=== PATIENT | female | born 1950 | race Caucasian/White ===

== ENCOUNTER 2020-10-05 15:22 | Inpatient (IN) ==
[2020-10-05 16:16] LABS: Basophils % 0.3 % (0.0-0.8); Eosinophils % 0.6 % (0.00-10.9); Hematocrit 35.3 VOL% (35.7-47.0); Hemoglobin 11.7 GM/DL (12.0-16.0); Immature Granulocytes % 1.1 %; Immature Granulocytes Absolute 0.04 #; Lymphocytes # 0.6 10*3/uL (1.4-4.0); Lymphocytes % 15.5 % (21.3-54.2); Mean Corpuscular HGB Conc 33.1 GM/DL (32-36); Mean Corpuscular Volume 91.7 FL (87-102); Mean Platelet Volume 9.8 FL (9.6-12.0); Monocytes % 7.8 % (1.7-12.7); Neutrophils % 74.7 % (38.7-73.9); Platelet Count 173 T/CUMM (130-400); Red Blood Count 3.85 MC/CUMM (3.8-5.5); Red Cell Distribution Width 15.2 % (9.3-17.3); White Blood Count 3.6 T/CUMM (4-12)
[2020-10-05] MEDS ORDERED: SODIUM CHLORIDE 0.9% 1,000 ML IV STA (16:16)
[2020-10-05 16:30] LABS: Bilirubin,Total 0.9 MG/DL (0.2-1.0); Calcium 7.5 MG/DL (8.5-10.1); Ferritin 83.3 ng/ml (8-252); Osmolality,Calculated 283.3 MOS/KG (273-304); Total Protein 6.2 G/DL (6.4-8.3)
[2020-10-05 16:43] LABS: Troponin I 0.033 NG/ML (0.00-0.045)
[2020-10-05] MEDS ORDERED: ONDANSETRON 4 MG/2 ML VIAL IV PRN (18:59)
[2020-10-05 20:32] LABS: Hepatitis B Core IgM Quant 0.06 Index; Hepatitis B Surface Ag Quant < 0.10 Index; Hepatitis B Surface Ag Result Negative (Negative); Hepatitis C Virus Ab Quant 0.08 Index; Hepatitis C Virus Ab Result Negative (Negative)
[2020-10-05] MEDS ORDERED: VANCOMYCIN INJ 2,000 MG in SODIUM CHLORIDE 0.9% 500 ML IV SCH (21:00)
[2020-10-05] MEDS ORDERED: ENOXAPARIN 40 MG/0.4 ML SYRINGE SUBCUT SCH (21:00)
[2020-10-05 21:49] LABS: ABG Base Excess 2.7 MMOL/L (-2.5-2.5); ABG HCO3 29.4 MMOL/L (20-26); ABG Oxygen Saturation 85.9 % (95-100); ABG PCO2 54.5 MM HG (35-48); ABG PO2 57.9 MM HG (80-95); ABG TCO2 31.1 MMOL/L (23-27); Allen Test Positive; Pt O2 Delivery Device Other
[2020-10-05] MEDS ORDERED: REMDESIVIR 200 MG in SODIUM CHLORIDE 0.9% 210 ML IV ONE (22:00)
[2020-10-05] MEDS ORDERED: INFLUENZA VIRUS VACCINE 0.5 ML SYRINGE IM ONE (22:11)
[2020-10-05] MEDS ORDERED: ETOMIDATE 20 MG/10 ML VIAL IV ONE ×2 (23:39→23:44)
[2020-10-05] MEDS ORDERED: ROCURONIUM 100 MG/10 ML VIAL IV ONE ×2 (23:40→23:44)
[2020-10-05] MEDS ORDERED: FUROSEMIDE 40 MG/4 ML VIAL ONE (23:42)
[2020-10-05] MEDS ORDERED: FUROSEMIDE 40 MG/4 ML VIAL IV ONE (23:42)
[2020-10-06 00:15] LABS: ABG Base Excess 2.6 MMOL/L (-2.5-2.5); ABG HCO3 30.2 MMOL/L (20-26); ABG Oxygen Saturation 73.5 % (95-100); ABG PCO2 59.9 MM HG (35-48); ABG PH 7.321 (7.35-7.45); ABG PO2 45.7 MM HG (80-95); ABG TCO2 32.1 MMOL/L (23-27)
[2020-10-06] MEDS: SODIUM CHLOR 0.9% KCL 40 MEQ 40 MEQ/1,000 ML BAG IV SCH ×3 (01:49→13:26)
[2020-10-06] MEDS: ALBUTEROL INHALER 18 GM INH SCH ×4 (02:10→18:02)
[2020-10-06 03:30] LABS: ABG Base Excess 4.8 MMOL/L (-2.5-2.5); ABG HCO3 28.6 MMOL/L (20-26); ABG PCO2 35.7 MM HG (35-48); ABG PO2 63.4 MM HG (80-95); ABG TCO2 24.3 MMOL/L (23-27); Allen Test Positive; Pt O2 Delivery Device Ventilator
[2020-10-06 06:12] LABS: Basophils % 0.2 % (0.0-0.8); Hematocrit 35.3 VOL% (35.7-47.0); Hemoglobin 11.9 GM/DL (12.0-16.0); Immature Granulocytes % 0.9 %; Immature Granulocytes Absolute 0.05 #; Lymphocytes # 0.7 10*3/uL (1.4-4.0); Lymphocytes % 11.7 % (21.3-54.2); Mean Corpuscular HGB Conc 33.7 GM/DL (32-36); Mean Corpuscular Volume 89.4 FL (87-102); Mean Platelet Volume 9.8 FL (9.6-12.0); Monocytes % 6.1 % (1.7-12.7); Neutrophils % 81.1 % (38.7-73.9); Platelet Count 190 T/CUMM (130-400); Red Blood Count 3.95 MC/CUMM (3.8-5.5); Red Cell Distribution Width 15.2 % (9.3-17.3); White Blood Count 5.9 T/CUMM (4-12)
[2020-10-06 06:35] LABS: Albumin 2.6 G/DL (3.4-5.0); Bilirubin,Total 1.2 MG/DL (0.2-1.0); Calcium 7.3 MG/DL (8.5-10.1); Osmolality,Calculated 282.1 MOS/KG (273-304); Total Protein 6.2 G/DL (6.4-8.3)
[2020-10-06 06:38] LABS: Albumin 2.7 G/DL (3.4-5.0); Bilirubin,Direct 0.46 MG/DL (0.0-0.20); Bilirubin,Indirect 0.6 MG/DL (0.0-1.0); Bilirubin,Total 1.1 MG/DL (0.2-1.0); Total Protein 6.2 G/DL (6.4-8.3)
[2020-10-06] MEDS ORDERED: PANTOPRAZOLE 40 MG VIAL IV SCH (09:00)
[2020-10-06] MEDS: DEXAMETHASONE 10 MG/1 ML VIAL IV SCH (09:14)
[2020-10-06] MEDS: ACETAMINOPHEN 325 MG TABLET PO PRN (09:15)
[2020-10-06] MEDS: POTASSIUM CHLORIDE 20 MEQ/15 ML UDCUP PER TUBE PRN ×2 (12:40→16:04)
[2020-10-06] MEDS: LOSARTAN 25 MG TABLET PO SCH (13:16)
[2020-10-06] MEDS: ENOXAPARIN 80 MG/0.8 ML SYRINGE SUBCUT SCH (13:16)
[2020-10-06] MEDS: PREGABALIN 75 MG CAPSULE PO SCH ×2 (13:16→20:35)
[2020-10-06] MEDS: FUROSEMIDE 20 MG TABLET PO SCH (13:16)
[2020-10-06] MEDS: AZITHROMYCIN INJ 500 MG in SODIUM CHLORIDE 0.9% 250 ML IV SCH (13:17)
[2020-10-06] MEDS ORDERED: SODIUM CHLORIDE 0.9% 1,000 ML IV PRN (14:22)
[2020-10-06] MEDS: REMDESIVIR 100 MG in SODIUM CHLORIDE 0.9% 100 ML IV SCH (16:02)
[2020-10-06] MEDS: POTASSIUM CHLORIDE 10 MEQ TABLET PO SCH (20:35)
[2020-10-06] MEDS: FAMOTIDINE 20 MG TABLET PER TUBE SCH (20:35)
[2020-10-06] MEDS: rOPINIRole 1 MG TABLET PO SCH (20:35)
[2020-10-07] MEDS: SODIUM CHLOR 0.9% KCL 40 MEQ 40 MEQ/1,000 ML BAG IV SCH ×2 (00:33→02:42)
[2020-10-07] MEDS: ENOXAPARIN 80 MG/0.8 ML SYRINGE SUBCUT SCH ×2 (00:34→14:33)
[2020-10-07] MEDS: ALBUTEROL INHALER 18 GM INH SCH ×4 (01:00→19:45)
[2020-10-07 04:48] LABS: Basophils % 0.2 % (0.0-0.8); Hematocrit 34.9 VOL% (35.7-47.0); Hemoglobin 11.4 GM/DL (12.0-16.0); Immature Granulocytes % 0.5 %; Immature Granulocytes Absolute 0.03 #; Lymphocytes # 0.6 10*3/uL (1.4-4.0); Lymphocytes % 11.1 % (21.3-54.2); Mean Corpuscular HGB Conc 32.7 GM/DL (32-36); Mean Corpuscular Volume 93.3 FL (87-102); Mean Platelet Volume 10.5 FL (9.6-12.0); Monocytes % 6.4 % (1.7-12.7); Neutrophils % 81.8 % (38.7-73.9); Platelet Count 179 T/CUMM (130-400); Red Blood Count 3.74 MC/CUMM (3.8-5.5); Red Cell Distribution Width 15.2 % (9.3-17.3); White Blood Count 5.5 T/CUMM (4-12)
[2020-10-07 05:00] LABS: ABG Base Excess 4.1 MMOL/L (-2.5-2.5); ABG HCO3 28.1 MMOL/L (20-26); ABG Oxygen Saturation 97.2 % (95-100); ABG PCO2 37.5 MM HG (35-48); ABG PH 7.477 (7.35-7.45); ABG PO2 85.7 MM HG (80-95); ABG TCO2 24.6 MMOL/L (23-27); Allen Test Positive; Pt O2 Delivery Device Ventilator
[2020-10-07 05:30] LABS: Albumin 2.3 G/DL (3.4-5.0); Bilirubin,Total 1.5 MG/DL (0.2-1.0); Calcium 7.4 MG/DL (8.5-10.1); Osmolality,Calculated 290.7 MOS/KG (273-304)
[2020-10-07] MEDS: LEVOTHYROXINE 50 MCG TABLET PO SCH (06:04)
[2020-10-07] MEDS ORDERED: POTASSIUM PHOSPHATE 30 MMOL in SODIUM CHLORIDE 0.9% 250 ML IV ONE (08:00)
[2020-10-07] MEDS: FUROSEMIDE 20 MG TABLET PO SCH (08:27)
[2020-10-07] MEDS: CHOLECALCIFEROL 1,000 UNIT TABLET PO SCH (08:27)
[2020-10-07] MEDS: ZINC GLUCONATE 50 MG TABLET PO SCH (08:27)
[2020-10-07] MEDS: PREGABALIN 75 MG CAPSULE PO SCH ×2 (08:27→20:36)
[2020-10-07] MEDS: DEXAMETHASONE 10 MG/1 ML VIAL IV SCH (08:32)
[2020-10-07] MEDS: FAMOTIDINE 20 MG TABLET PER TUBE SCH ×2 (08:32→20:36)
[2020-10-07] MEDS: LOSARTAN 25 MG TABLET PO SCH (08:32)
[2020-10-07] MEDS: ASCORBIC ACID 500 MG TABLET PO SCH (08:33)
[2020-10-07] MEDS: SODIUM CHLORIDE 0.9% 1,000 ML IV SCH (11:00)
[2020-10-07] MEDS ORDERED: DEXTROSE 50% 25 GM/50 ML VIAL IV PRN (12:13)
[2020-10-07] MEDS ORDERED: GLUCAGON 1 MG VIAL IM PRN (12:13)
[2020-10-07] MEDS: REMDESIVIR 100 MG in SODIUM CHLORIDE 0.9% 100 ML IV SCH ×2 (16:42→17:20)
[2020-10-07] MEDS: OLMESARTAN 20 MG TABLET PO SCH (17:42)
[2020-10-07] MEDS: INSULIN REGULAR 100 UNIT/ML SUBCUT SCH (17:42)
[2020-10-07] MEDS: hydrALAZINE 20 MG/1 ML VIAL IV PRN (18:30)
[2020-10-07] MEDS: rOPINIRole 1 MG TABLET PO SCH (20:36)
[2020-10-07] MEDS: POTASSIUM CHLORIDE 10 MEQ TABLET PO SCH (20:37)
[2020-10-07] MEDS: AZITHROMYCIN INJ 500 MG in SODIUM CHLORIDE 0.9% 250 ML IV SCH (20:38)
[2020-10-07] MEDS ORDERED: MORPHINE 10 MG/1 ML VIAL IV PRN ×2 (22:00→22:36)
[2020-10-07] MEDS ORDERED: MORPHINE 4 MG/1 ML VIAL ONE (22:16)
[2020-10-07] MEDS: fentaNYL INJ 1,250 MCG in SODIUM CHLORIDE 0.9% 225 ML IV PRN (23:10)
[2020-10-08] MEDS: INSULIN REGULAR 100 UNIT/ML SUBCUT SCH ×4 (00:40→17:44)
[2020-10-08] MEDS: ALBUTEROL INHALER 18 GM INH SCH ×4 (01:25→18:11)
[2020-10-08] MEDS: ENOXAPARIN 80 MG/0.8 ML SYRINGE SUBCUT SCH ×2 (01:25→13:51)
[2020-10-08] MEDS: SODIUM CHLORIDE 0.9% 1,000 ML IV SCH ×3 (02:25→06:31)
[2020-10-08 05:00] LABS: ABG Oxygen Saturation 97.8 % (95-100); ABG PCO2 27.4 MM HG (35-48); ABG PH 7.558 (7.35-7.45); ABG PO2 84.9 MM HG (80-95); ABG TCO2 21.8 MMOL/L (23-27); Allen Test Positive; Pt O2 Delivery Device Ventilator
[2020-10-08] MEDS: LEVOTHYROXINE 50 MCG TABLET PO SCH (06:26)
[2020-10-08 07:17] LABS: Hematocrit 31.6 VOL% (35.7-47.0); Hemoglobin 10.4 GM/DL (12.0-16.0); Immature Granulocytes Absolute 0.07 #; Lymphocytes # 0.8 10*3/uL (1.4-4.0); Lymphocytes % 10.9 % (21.3-54.2); Mean Corpuscular HGB Conc 32.9 GM/DL (32-36); Mean Corpuscular Volume 90.8 FL (87-102); Mean Platelet Volume 10.5 FL (9.6-12.0); NRBC # 0.05 10*3/uL; Neutrophils % 81.1 % (38.7-73.9); Platelet Count 198 T/CUMM (130-400); Red Blood Count 3.48 MC/CUMM (3.8-5.5); Red Cell Distribution Width 15.2 % (9.3-17.3); White Blood Count 7.3 T/CUMM (4-12)
[2020-10-08 07:46] LABS: Ferritin 74.2 ng/ml (8-252)
[2020-10-08] MEDS: CHOLECALCIFEROL 1,000 UNIT TABLET PO SCH (09:26)
[2020-10-08] MEDS: OLMESARTAN 20 MG TABLET PO SCH (09:26)
[2020-10-08] MEDS: POTASSIUM CHLORIDE 10 MEQ TABLET PO SCH ×2 (09:27→20:26)
[2020-10-08] MEDS: ASCORBIC ACID 500 MG TABLET PO SCH (09:27)
[2020-10-08] MEDS: PREGABALIN 75 MG CAPSULE PO SCH ×2 (09:28→20:27)
[2020-10-08] MEDS: FAMOTIDINE 20 MG TABLET PER TUBE SCH ×2 (09:28→20:26)
[2020-10-08] MEDS: FUROSEMIDE 20 MG TABLET PO SCH (09:28)
[2020-10-08] MEDS: ZINC GLUCONATE 50 MG TABLET PO SCH (09:28)
[2020-10-08] MEDS: DEXAMETHASONE 10 MG/1 ML VIAL IV SCH (09:28)
[2020-10-08] MEDS: REMDESIVIR 100 MG in SODIUM CHLORIDE 0.9% 100 ML IV SCH (09:52)
[2020-10-08] MEDS ORDERED: POTASSIUM PHOSPHATE 30 MMOL in SODIUM CHLORIDE 0.9% 250 ML IV ONE (10:00)
[2020-10-08] MEDS: FUROSEMIDE 40 MG TABLET PO SCH ×2 (11:13→20:26)
[2020-10-08] MEDS: fentaNYL INJ 1,250 MCG in SODIUM CHLORIDE 0.9% 225 ML IV PRN ×2 (14:39→23:17)
[2020-10-08] MEDS: AZITHROMYCIN INJ 500 MG in SODIUM CHLORIDE 0.9% 250 ML IV SCH (20:26)
[2020-10-08] MEDS: rOPINIRole 1 MG TABLET PO SCH (20:26)
[2020-10-09] MEDS: INSULIN REGULAR 100 UNIT/ML SUBCUT SCH ×4 (00:11→18:33)
[2020-10-09] MEDS: ALBUTEROL INHALER 18 GM INH SCH ×4 (00:12→21:56)
[2020-10-09] MEDS: ENOXAPARIN 80 MG/0.8 ML SYRINGE SUBCUT SCH ×2 (01:36→14:52)
[2020-10-09 03:54] LABS: ABG Base Excess 1.2 MMOL/L (-2.5-2.5); ABG HCO3 25.5 MMOL/L (20-26); ABG Oxygen Saturation 95.3 % (95-100); ABG PCO2 29.5 MM HG (35-48); ABG PH 7.509 (7.35-7.45); ABG PO2 73.3 MM HG (80-95); Allen Test Positive; Pt O2 Delivery Device Ventilator
[2020-10-09 03:55] LABS: Basophils % 0.1 % (0.0-0.8); Hematocrit 34.6 VOL% (35.7-47.0); Immature Granulocytes % 1.4 %; Immature Granulocytes Absolute 0.11 #; Lymphocytes # 0.8 10*3/uL (1.4-4.0); Lymphocytes % 10.4 % (21.3-54.2); Mean Corpuscular HGB Conc 31.8 GM/DL (32-36); Mean Platelet Volume 11.1 FL (9.6-12.0); Monocytes % 7.4 % (1.7-12.7); NRBC # 0.12 10*3/uL; Neutrophils % 80.7 % (38.7-73.9); Platelet Count 240 T/CUMM (130-400); Red Blood Count 3.72 MC/CUMM (3.8-5.5); Red Cell Distribution Width 15.2 % (9.3-17.3); White Blood Count 7.8 T/CUMM (4-12)
[2020-10-09 04:25] LABS: Calcium 7.3 MG/DL (8.5-10.1); Osmolality,Calculated 293.8 MOS/KG (273-304)
[2020-10-09] MEDS: LEVOTHYROXINE 50 MCG TABLET PO SCH (06:01)
[2020-10-09] MEDS: ZINC GLUCONATE 50 MG TABLET PO SCH (08:26)
[2020-10-09] MEDS: POTASSIUM CHLORIDE 10 MEQ TABLET PO SCH ×2 (08:26→20:36)
[2020-10-09] MEDS: OLMESARTAN 20 MG TABLET PO SCH (08:26)
[2020-10-09] MEDS: FUROSEMIDE 40 MG TABLET PO SCH ×2 (08:26→20:37)
[2020-10-09] MEDS: CHOLECALCIFEROL 1,000 UNIT TABLET PO SCH (08:26)
[2020-10-09] MEDS: PREGABALIN 75 MG CAPSULE PO SCH ×2 (08:27→20:37)
[2020-10-09] MEDS: ASCORBIC ACID 500 MG TABLET PO SCH (08:27)
[2020-10-09] MEDS: FAMOTIDINE 20 MG TABLET PER TUBE SCH ×2 (08:27→20:37)
[2020-10-09] MEDS: DEXAMETHASONE 10 MG/1 ML VIAL IV SCH (08:27)
[2020-10-09] MEDS: REMDESIVIR 100 MG in SODIUM CHLORIDE 0.9% 100 ML IV SCH (08:59)
[2020-10-09] MEDS: rOPINIRole 1 MG TABLET PO SCH (20:37)
[2020-10-09] MEDS: AZITHROMYCIN INJ 500 MG in SODIUM CHLORIDE 0.9% 250 ML IV SCH (20:39)
[2020-10-10] MEDS: INSULIN REGULAR 100 UNIT/ML SUBCUT SCH ×4 (00:33→17:42)
[2020-10-10] MEDS: ALBUTEROL INHALER 18 GM INH SCH ×4 (00:33→21:49)
[2020-10-10 03:36] LABS: ABG Base Excess 2.8 MMOL/L (-2.5-2.5); ABG HCO3 26.9 MMOL/L (20-26); ABG Oxygen Saturation 98.5 % (95-100); ABG PCO2 41.9 MM HG (35-48); ABG PH 7.425 (7.35-7.45); Allen Test Positive; Pt O2 Delivery Device Ventilator
[2020-10-10 04:38] LABS: Basophils % 0.2 % (0.0-0.8); Hematocrit 38.8 VOL% (35.7-47.0); Hemoglobin 12.6 GM/DL (12.0-16.0); Immature Granulocytes Absolute 0.38 #; Lymphocytes # 0.7 10*3/uL (1.4-4.0); Lymphocytes % 5.7 % (21.3-54.2); Mean Corpuscular HGB Conc 32.5 GM/DL (32-36); Mean Corpuscular Volume 90.9 FL (87-102); Mean Platelet Volume 11.7 FL (9.6-12.0); Monocytes % 7.5 % (1.7-12.7); NRBC # 0.13 10*3/uL; Neutrophils % 83.6 % (38.7-73.9); Platelet Count 234 T/CUMM (130-400); Red Blood Count 4.27 MC/CUMM (3.8-5.5); Red Cell Distribution Width 14.6 % (9.3-17.3)
[2020-10-10] MEDS: hydrALAZINE 20 MG/1 ML VIAL IV PRN (04:54)
[2020-10-10] MEDS: MORPHINE 4 MG/1 ML VIAL IV PRN (04:54)
[2020-10-10 04:55] LABS: Calcium 7.9 MG/DL (8.5-10.1)
[2020-10-10 04:56] LABS: White Blood Count 12.9 T/CUMM (4-12)
[2020-10-10] MEDS: fentaNYL INJ 1,250 MCG in SODIUM CHLORIDE 0.9% 225 ML IV PRN (04:56)
[2020-10-10] MEDS: ENOXAPARIN 80 MG/0.8 ML SYRINGE SUBCUT SCH ×2 (04:59→17:42)
[2020-10-10 05:10] LABS: Band Neutrophils 2 % (0-10); Lymphocytes 5 % (20-55); Nucleated Red Blood Cells 1 (0-5); Segmented Neutrophils 88 % (50-85); Total Cells Counted 100
[2020-10-10 05:11] LABS: Hypochromasia Slight; Polychromasia Slight
[2020-10-10 05:12] LABS: Microcytosis Slight; Ovalocytes Slight
[2020-10-10] MEDS: LEVOTHYROXINE 50 MCG TABLET PO SCH (06:20)
[2020-10-10] MEDS: ZINC GLUCONATE 50 MG TABLET PO SCH (08:09)
[2020-10-10] MEDS: PREGABALIN 75 MG CAPSULE PO SCH ×2 (08:09→20:09)
[2020-10-10] MEDS: DEXAMETHASONE 10 MG/1 ML VIAL IV SCH (08:09)
[2020-10-10] MEDS: CHOLECALCIFEROL 1,000 UNIT TABLET PO SCH (08:10)
[2020-10-10] MEDS: ASCORBIC ACID 500 MG TABLET PO SCH (08:10)
[2020-10-10] MEDS: OLMESARTAN 20 MG TABLET PO SCH (08:10)
[2020-10-10] MEDS: FAMOTIDINE 20 MG TABLET PER TUBE SCH ×2 (08:10→20:09)
[2020-10-10] MEDS: FUROSEMIDE 40 MG TABLET PO SCH ×2 (08:10→20:10)
[2020-10-10] MEDS: POTASSIUM CHLORIDE 10 MEQ TABLET PO SCH (09:48)
[2020-10-10] MEDS: MEROPENEM 500 MG in SODIUM CHLORIDE 0.9% 100 ML IV SCH ×3 (09:48→20:10)
[2020-10-10] MEDS: POTASSIUM CHLORIDE 20 MEQ/15 ML UDCUP PO SCH ×2 (10:42→21:49)
[2020-10-10] MEDS ORDERED: GENTAMICIN IV ONE (11:00)
[2020-10-10] MEDS ORDERED: SODIUM CHLORIDE 0.9% IV ONE (11:00)
[2020-10-10] MEDS: ACETAMINOPHEN 325 MG TABLET PO PRN (12:48)
[2020-10-10] MEDS: rOPINIRole 1 MG TABLET PO SCH (20:09)
[2020-10-10] MEDS: POTASSIUM CHLORIDE 20 MEQ/15 ML UDCUP PER TUBE PRN (20:10)
[2020-10-11] MEDS: INSULIN REGULAR 100 UNIT/ML SUBCUT SCH ×4 (02:11→18:34)
[2020-10-11] MEDS: GENTAMICIN INJ 180 MG in SODIUM CHLORIDE 0.9% 100 ML IV SCH ×2 (02:11→12:57)
[2020-10-11] MEDS: ALBUTEROL INHALER 18 GM INH SCH ×4 (02:12→18:35)
[2020-10-11] MEDS: fentaNYL INJ 1,250 MCG in SODIUM CHLORIDE 0.9% 225 ML IV PRN (02:16)
[2020-10-11] MEDS: MEROPENEM 500 MG in SODIUM CHLORIDE 0.9% 100 ML IV SCH ×2 (02:58→09:18)
[2020-10-11 03:21] LABS: ABG Base Excess 3.5 MMOL/L (-2.5-2.5); ABG HCO3 25.6 MMOL/L (20-26); ABG Oxygen Saturation 97.6 % (95-100); ABG PCO2 30.6 MM HG (35-48); ABG PO2 99.4 MM HG (80-95); ABG TCO2 26.5 MMOL/L (23-27); Allen Test Positive; Pt O2 Delivery Device Ventilator
[2020-10-11 04:22] LABS: Basophils % 0.2 % (0.0-0.8); Hematocrit 35.1 VOL% (35.7-47.0); Hemoglobin 11.4 GM/DL (12.0-16.0); Immature Granulocytes % 0.8 %; Immature Granulocytes Absolute 0.08 #; Lymphocytes # 0.6 10*3/uL (1.4-4.0); Mean Corpuscular HGB Conc 32.5 GM/DL (32-36); Mean Corpuscular Volume 91.4 FL (87-102); Monocytes % 6.5 % (1.7-12.7); NRBC # 0.02 10*3/uL; Neutrophils % 86.5 % (38.7-73.9); Platelet Count 291 T/CUMM (130-400); Red Blood Count 3.84 MC/CUMM (3.8-5.5); Red Cell Distribution Width 14.6 % (9.3-17.3); White Blood Count 9.7 T/CUMM (4-12)
[2020-10-11 04:50] LABS: Calcium 7.5 MG/DL (8.5-10.1); Osmolality,Calculated 301.6 MOS/KG (273-304)
[2020-10-11] MEDS: ENOXAPARIN 80 MG/0.8 ML SYRINGE SUBCUT SCH ×2 (05:58→15:47)
[2020-10-11] MEDS: LEVOTHYROXINE 50 MCG TABLET PO SCH (06:50)
[2020-10-11] MEDS: OLMESARTAN 20 MG TABLET PO SCH (09:17)
[2020-10-11] MEDS: ZINC GLUCONATE 50 MG TABLET PO SCH (09:17)
[2020-10-11] MEDS: FAMOTIDINE 20 MG TABLET PER TUBE SCH ×2 (09:17→21:12)
[2020-10-11] MEDS: CHOLECALCIFEROL 1,000 UNIT TABLET PO SCH (09:17)
[2020-10-11] MEDS: PREGABALIN 75 MG CAPSULE PO SCH ×2 (09:18→21:12)
[2020-10-11] MEDS: FUROSEMIDE 40 MG TABLET PO SCH ×2 (09:18→21:12)
[2020-10-11] MEDS: ASCORBIC ACID 500 MG TABLET PO SCH (09:18)
[2020-10-11] MEDS: DEXAMETHASONE 10 MG/1 ML VIAL IV SCH (09:18)
[2020-10-11] MEDS: POTASSIUM CHLORIDE 20 MEQ/15 ML UDCUP PO SCH ×2 (09:19→21:13)
[2020-10-11] MEDS: cefTRIAXone 1,000 MG in SYRINGE 1 EACH IV SCH (14:28)
[2020-10-11] MEDS: rOPINIRole 1 MG TABLET PO SCH (21:12)
[2020-10-12] MEDS: fentaNYL INJ 1,250 MCG in SODIUM CHLORIDE 0.9% 225 ML IV PRN (00:03)
[2020-10-12] MEDS: INSULIN REGULAR 100 UNIT/ML SUBCUT SCH ×4 (00:28→17:55)
[2020-10-12] MEDS: ALBUTEROL INHALER 18 GM INH SCH ×4 (00:29→18:05)
[2020-10-12 04:18] LABS: Basophils % 0.1 % (0.0-0.8); Hematocrit 35.1 VOL% (35.7-47.0); Hemoglobin 11.3 GM/DL (12.0-16.0); Immature Granulocytes % 1.3 %; Immature Granulocytes Absolute 0.13 #; Lymphocytes # 0.5 10*3/uL (1.4-4.0); Mean Corpuscular HGB Conc 32.2 GM/DL (32-36); Mean Corpuscular Volume 93.6 FL (87-102); Mean Platelet Volume 10.7 FL (9.6-12.0); Monocytes % 6.3 % (1.7-12.7); Neutrophils % 87.3 % (38.7-73.9); Platelet Count 323 T/CUMM (130-400); Red Blood Count 3.75 MC/CUMM (3.8-5.5); Red Cell Distribution Width 14.4 % (9.3-17.3)
[2020-10-12 04:33] LABS: Calcium 7.8 MG/DL (8.5-10.1); Osmolality,Calculated 296.8 MOS/KG (273-304)
[2020-10-12 04:55] LABS: ABG HCO3 28.8 MMOL/L (20-26); ABG Oxygen Saturation 92.2 % (95-100); ABG PCO2 44.7 MM HG (35-48); ABG PH 7.434 (7.35-7.45); ABG PO2 66.7 MM HG (80-95); ABG TCO2 26.7 MMOL/L (23-27); Allen Test Positive; Pt O2 Delivery Device Ventilator
[2020-10-12] MEDS: ENOXAPARIN 80 MG/0.8 ML SYRINGE SUBCUT SCH ×2 (05:17→15:20)
[2020-10-12] MEDS: LEVOTHYROXINE 50 MCG TABLET PO SCH (06:11)
[2020-10-12] MEDS: OLMESARTAN 20 MG TABLET PO SCH (09:10)
[2020-10-12] MEDS: ASCORBIC ACID 500 MG TABLET PO SCH (09:11)
[2020-10-12] MEDS: FUROSEMIDE 40 MG TABLET PO SCH ×2 (09:11→20:35)
[2020-10-12] MEDS: CHOLECALCIFEROL 1,000 UNIT TABLET PO SCH (09:11)
[2020-10-12] MEDS: POTASSIUM CHLORIDE 20 MEQ/15 ML UDCUP PO SCH ×2 (09:11→20:36)
[2020-10-12] MEDS: ZINC GLUCONATE 50 MG TABLET PO SCH (09:11)
[2020-10-12] MEDS: FAMOTIDINE 20 MG TABLET PER TUBE SCH ×2 (09:11→20:35)
[2020-10-12] MEDS: DEXAMETHASONE 10 MG/1 ML VIAL IV SCH (09:13)
[2020-10-12] MEDS: PREGABALIN 75 MG CAPSULE PO SCH ×2 (09:14→20:35)
[2020-10-12] MEDS: cefTRIAXone 1,000 MG in SYRINGE 1 EACH IV SCH (14:27)
[2020-10-12] MEDS: rOPINIRole 1 MG TABLET PO SCH (20:34)
[2020-10-13] MEDS: ALBUTEROL INHALER 18 GM INH SCH ×4 (00:13→21:48)
[2020-10-13] MEDS: INSULIN REGULAR 100 UNIT/ML SUBCUT SCH ×4 (00:13→17:35)
[2020-10-13] MEDS: ENOXAPARIN 80 MG/0.8 ML SYRINGE SUBCUT SCH ×2 (04:32→16:14)
[2020-10-13 04:33] LABS: ABG Base Excess 7.5 MMOL/L (-2.5-2.5); ABG HCO3 31.3 MMOL/L (20-26); ABG Oxygen Saturation 98.7 % (95-100); ABG PCO2 45.6 MM HG (35-48); ABG TCO2 27.9 MMOL/L (23-27); Allen Test Positive; Pt O2 Delivery Device Ventilator
[2020-10-13 05:00] LABS: Basophils % 0.1 % (0.0-0.8); Eosinophils % 0.1 % (0.00-10.9); Hematocrit 38.6 VOL% (35.7-47.0); Hemoglobin 12.7 GM/DL (12.0-16.0); Immature Granulocytes % 2.8 %; Immature Granulocytes Absolute 0.27 #; Lymphocytes # 0.6 10*3/uL (1.4-4.0); Lymphocytes % 6.3 % (21.3-54.2); Mean Corpuscular HGB Conc 32.9 GM/DL (32-36); Mean Corpuscular Volume 88.9 FL (87-102); Mean Platelet Volume 10.4 FL (9.6-12.0); Monocytes % 6.4 % (1.7-12.7); Neutrophils % 84.3 % (38.7-73.9); Platelet Count 402 T/CUMM (130-400); Red Blood Count 4.34 MC/CUMM (3.8-5.5); Red Cell Distribution Width 14.1 % (9.3-17.3); White Blood Count 9.7 T/CUMM (4-12)
[2020-10-13 05:24] LABS: Osmolality,Calculated 291.1 MOS/KG (273-304)
[2020-10-13] MEDS: LEVOTHYROXINE 50 MCG TABLET PO SCH (06:03)
[2020-10-13] MEDS: DEXAMETHASONE 10 MG/1 ML VIAL IV SCH (08:03)
[2020-10-13] MEDS: CHOLECALCIFEROL 1,000 UNIT TABLET PO SCH (08:04)
[2020-10-13] MEDS: PREGABALIN 75 MG CAPSULE PO SCH ×2 (08:04→20:10)
[2020-10-13] MEDS: POTASSIUM CHLORIDE 20 MEQ/15 ML UDCUP PO SCH ×2 (08:04→21:49)
[2020-10-13] MEDS: ASCORBIC ACID 500 MG TABLET PO SCH (08:04)
[2020-10-13] MEDS: ZINC GLUCONATE 50 MG TABLET PO SCH (08:04)
[2020-10-13] MEDS: FUROSEMIDE 40 MG TABLET PO SCH (08:04)
[2020-10-13] MEDS: FAMOTIDINE 20 MG TABLET PER TUBE SCH ×2 (08:04→20:10)
[2020-10-13] MEDS: OLMESARTAN 20 MG TABLET PO SCH (08:04)
[2020-10-13] MEDS: FUROSEMIDE 40 MG/4 ML VIAL IV SCH (09:38)
[2020-10-13] MEDS: cefTRIAXone 1,000 MG in SYRINGE 1 EACH IV SCH (14:56)
[2020-10-13] MEDS: LOSARTAN 25 MG TABLET PO SCH ×2 (19:19→19:20)
[2020-10-13] MEDS: POTASSIUM CHLORIDE 20 MEQ/15 ML UDCUP PER TUBE PRN (20:09)
[2020-10-13] MEDS: amLODIPine 5 MG TABLET PO SCH (20:10)
[2020-10-13] MEDS: rOPINIRole 1 MG TABLET PO SCH (20:10)
[2020-10-13] MEDS: fentaNYL INJ 1,250 MCG in SODIUM CHLORIDE 0.9% 225 ML IV PRN (23:09)
[2020-10-14] MEDS: INSULIN REGULAR 100 UNIT/ML SUBCUT SCH ×4 (00:33→18:20)
[2020-10-14] MEDS: ALBUTEROL INHALER 18 GM INH SCH ×4 (01:19→21:26)
[2020-10-14 03:53] LABS: ABG Base Excess 7.9 MMOL/L (-2.5-2.5); ABG HCO3 31.7 MMOL/L (20-26); ABG Oxygen Saturation 98.3 % (95-100); ABG PCO2 45.3 MM HG (35-48); ABG PH 7.467 (7.35-7.45); ABG TCO2 28.8 MMOL/L (23-27)
[2020-10-14 04:35] LABS: Eosinophils # 0.1 10*3/uL (0.0-0.87); Eosinophils % 0.8 % (0.00-10.9); Hematocrit 37.5 VOL% (35.7-47.0); Hemoglobin 12.1 GM/DL (12.0-16.0); Immature Granulocytes % 2.2 %; Immature Granulocytes Absolute 0.18 #; Lymphocytes # 0.8 10*3/uL (1.4-4.0); Lymphocytes % 9.2 % (21.3-54.2); Mean Corpuscular HGB Conc 32.3 GM/DL (32-36); Mean Corpuscular Volume 90.4 FL (87-102); Mean Platelet Volume 10.4 FL (9.6-12.0); Monocytes % 6.3 % (1.7-12.7); Neutrophils % 81.5 % (38.7-73.9); Platelet Count 372 T/CUMM (130-400); Red Blood Count 4.15 MC/CUMM (3.8-5.5); Red Cell Distribution Width 14.3 % (9.3-17.3); White Blood Count 8.3 T/CUMM (4-12)
[2020-10-14 04:43] LABS: Calcium 7.9 MG/DL (8.5-10.1); Osmolality,Calculated 295.8 MOS/KG (273-304)
[2020-10-14] MEDS: ENOXAPARIN 80 MG/0.8 ML SYRINGE SUBCUT SCH ×2 (06:24→16:16)
[2020-10-14] MEDS: LEVOTHYROXINE 50 MCG TABLET PO SCH (06:27)
[2020-10-14] MEDS: DEXAMETHASONE 10 MG/1 ML VIAL IV SCH (08:01)
[2020-10-14] MEDS: PREGABALIN 75 MG CAPSULE PO SCH ×2 (08:02→20:00)
[2020-10-14] MEDS: POTASSIUM CHLORIDE 20 MEQ/15 ML UDCUP PO SCH ×2 (08:02→21:26)
[2020-10-14] MEDS: FUROSEMIDE 40 MG/4 ML VIAL IV SCH (08:02)
[2020-10-14] MEDS: CHOLECALCIFEROL 1,000 UNIT TABLET PO SCH (08:02)
[2020-10-14] MEDS: FAMOTIDINE 20 MG TABLET PER TUBE SCH ×2 (08:02→20:00)
[2020-10-14] MEDS: amLODIPine 5 MG TABLET PO SCH (08:02)
[2020-10-14] MEDS: ASCORBIC ACID 500 MG TABLET PO SCH (08:02)
[2020-10-14] MEDS: ZINC GLUCONATE 50 MG TABLET PO SCH (08:02)
[2020-10-14] MEDS: OLMESARTAN 20 MG TABLET PO SCH (08:03)
[2020-10-14] MEDS: cefTRIAXone 1,000 MG in SYRINGE 1 EACH IV SCH (16:15)
[2020-10-14] MEDS: POTASSIUM CHLORIDE 20 MEQ/15 ML UDCUP PER TUBE PRN (19:42)
[2020-10-14] MEDS: rOPINIRole 1 MG TABLET PO SCH (20:00)
[2020-10-14] MEDS: ACETAMINOPHEN 325 MG TABLET PO PRN (21:27)
[2020-10-15] MEDS: ALBUTEROL INHALER 18 GM INH SCH ×4 (02:23→18:28)
[2020-10-15] MEDS: INSULIN REGULAR 100 UNIT/ML SUBCUT SCH ×4 (02:23→18:28)
[2020-10-15] MEDS: fentaNYL INJ 1,250 MCG in SODIUM CHLORIDE 0.9% 225 ML IV PRN (03:26)
[2020-10-15 04:36] LABS: ABG Base Excess 8.6 MMOL/L (-2.5-2.5); ABG HCO3 32.8 MMOL/L (20-26); ABG PCO2 43.2 MM HG (35-48); ABG PH 7.498 (7.35-7.45); ABG PO2 70.1 MM HG (80-95); ABG TCO2 34.1 MMOL/L (23-27)
[2020-10-15 04:37] LABS: ABG Oxygen Saturation 95.3 % (95-100); Allen Test Positive; Pt O2 Delivery Device Ventilator
[2020-10-15] MEDS: ENOXAPARIN 80 MG/0.8 ML SYRINGE SUBCUT SCH ×2 (05:16→16:02)
[2020-10-15 05:49] LABS: Basophils % 0.2 % (0.0-0.8); Eosinophils # 0.1 10*3/uL (0.0-0.87); Eosinophils % 2.1 % (0.00-10.9); Hematocrit 35.8 VOL% (35.7-47.0); Hemoglobin 11.4 GM/DL (12.0-16.0); Immature Granulocytes % 0.8 %; Immature Granulocytes Absolute 0.05 #; Lymphocytes # 0.5 10*3/uL (1.4-4.0); Lymphocytes % 7.3 % (21.3-54.2); Mean Corpuscular HGB Conc 31.8 GM/DL (32-36); Mean Platelet Volume 10.4 FL (9.6-12.0); Neutrophils % 84.6 % (38.7-73.9); Platelet Count 309 T/CUMM (130-400); Red Blood Count 3.89 MC/CUMM (3.8-5.5); Red Cell Distribution Width 14.2 % (9.3-17.3); White Blood Count 6.2 T/CUMM (4-12)
[2020-10-15 06:14] LABS: Calcium 8.1 MG/DL (8.5-10.1)
[2020-10-15 06:19] LABS: Bilirubin,Total 0.7 MG/DL (0.2-1.0); Calcium 7.9 MG/DL (8.5-10.1); Ferritin 64.5 ng/ml (8-252); Osmolality,Calculated 294.8 MOS/KG (273-304); Total Protein 6.2 G/DL (6.4-8.3)
[2020-10-15] MEDS: LEVOTHYROXINE 50 MCG TABLET PO SCH (07:12)
[2020-10-15] MEDS: OLMESARTAN 20 MG TABLET PO SCH (08:36)
[2020-10-15] MEDS: ZINC GLUCONATE 50 MG TABLET PO SCH (08:36)
[2020-10-15] MEDS: FAMOTIDINE 20 MG TABLET PER TUBE SCH ×2 (08:36→20:28)
[2020-10-15] MEDS: PREGABALIN 75 MG CAPSULE PO SCH ×2 (08:36→20:29)
[2020-10-15] MEDS: CHOLECALCIFEROL 1,000 UNIT TABLET PO SCH (08:36)
[2020-10-15] MEDS: ASCORBIC ACID 500 MG TABLET PO SCH (08:36)
[2020-10-15] MEDS: POTASSIUM CHLORIDE 20 MEQ/15 ML UDCUP PO SCH ×2 (08:37→20:29)
[2020-10-15] MEDS: DEXAMETHASONE 10 MG/1 ML VIAL IV SCH (08:37)
[2020-10-15] MEDS: amLODIPine 5 MG TABLET PO SCH ×2 (08:40→12:21)
[2020-10-15] MEDS: FUROSEMIDE 40 MG/4 ML VIAL IV SCH ×2 (08:40→12:21)
[2020-10-15] MEDS: ACETAMINOPHEN 325 MG TABLET PO PRN (12:23)
[2020-10-15] MEDS: cefTRIAXone 1,000 MG in SYRINGE 1 EACH IV SCH (14:40)
[2020-10-15 14:45] LABS: ABG Base Excess 7.3 MMOL/L (-2.5-2.5); ABG HCO3 30.8 MMOL/L (20-26); ABG PCO2 39.2 MM HG (35-48); ABG PH 7.513 (7.35-7.45); ABG PO2 75.3 MM HG (80-95); Allen Test Positive; Pt O2 Delivery Device Ventilator
[2020-10-15] MEDS: rOPINIRole 1 MG TABLET PO SCH (20:29)
[2020-10-16] MEDS: INSULIN REGULAR 100 UNIT/ML SUBCUT SCH ×4 (00:32→17:59)
[2020-10-16] MEDS: ALBUTEROL INHALER 18 GM INH SCH ×4 (00:32→18:05)
[2020-10-16] MEDS: ENOXAPARIN 80 MG/0.8 ML SYRINGE SUBCUT SCH ×2 (04:04→15:51)
[2020-10-16 05:10] LABS: ABG Base Excess 8.2 MMOL/L (-2.5-2.5); ABG Oxygen Saturation 98.6 % (95-100); ABG PCO2 44.8 MM HG (35-48); ABG PH 7.474 (7.35-7.45); ABG TCO2 29.2 MMOL/L (23-27); Allen Test Positive; Pt O2 Delivery Device Ventilator
[2020-10-16 06:01] LABS: Basophils % 0.3 % (0.0-0.8); Eosinophils # 0.1 10*3/uL (0.0-0.87); Eosinophils % 2.3 % (0.00-10.9); Immature Granulocytes % 1.3 %; Immature Granulocytes Absolute 0.05 #; Lymphocytes # 0.4 10*3/uL (1.4-4.0); Lymphocytes % 10.6 % (21.3-54.2); Mean Corpuscular HGB Conc 31.4 GM/DL (32-36); Mean Corpuscular Volume 93.3 FL (87-102); Mean Platelet Volume 10.8 FL (9.6-12.0); Monocytes % 8.1 % (1.7-12.7); Neutrophils % 77.4 % (38.7-73.9); Platelet Count 350 T/CUMM (130-400); Red Blood Count 3.75 MC/CUMM (3.8-5.5); Red Cell Distribution Width 14.1 % (9.3-17.3)
[2020-10-16 06:20] LABS: INR 1.1; PT Patient Result 11.9 SECS (9.8-11.9)
[2020-10-16 06:21] LABS: Bilirubin,Total 0.8 MG/DL (0.2-1.0); Calcium 8.3 MG/DL (8.5-10.1); Osmolality,Calculated 296.7 MOS/KG (273-304); Total Protein 6.6 G/DL (6.4-8.3)
[2020-10-16] MEDS: LEVOTHYROXINE 50 MCG TABLET PO SCH (06:28)
[2020-10-16] MEDS: CHOLECALCIFEROL 1,000 UNIT TABLET PO SCH (09:13)
[2020-10-16] MEDS: OLMESARTAN 20 MG TABLET PO SCH (09:13)
[2020-10-16] MEDS: ASCORBIC ACID 500 MG TABLET PO SCH (09:13)
[2020-10-16] MEDS: PREGABALIN 75 MG CAPSULE PO SCH ×2 (09:13→20:07)
[2020-10-16] MEDS: FAMOTIDINE 20 MG TABLET PER TUBE SCH ×2 (09:13→20:07)
[2020-10-16] MEDS: amLODIPine 5 MG TABLET PO SCH (09:14)
[2020-10-16] MEDS: FUROSEMIDE 40 MG/4 ML VIAL IV SCH (09:14)
[2020-10-16] MEDS: ZINC GLUCONATE 50 MG TABLET PO SCH (09:14)
[2020-10-16] MEDS: POTASSIUM CHLORIDE 20 MEQ/15 ML UDCUP PO SCH ×2 (09:16→20:09)
[2020-10-16] MEDS: VANCOMYCIN INJ 2,000 MG in SODIUM CHLORIDE 0.9% 500 ML IV SCH (12:47)
[2020-10-16] MEDS: fentaNYL INJ 1,250 MCG in SODIUM CHLORIDE 0.9% 225 ML IV PRN (13:03)
[2020-10-16] MEDS: cefTRIAXone 1,000 MG in SYRINGE 1 EACH IV SCH (14:28)
[2020-10-16] MEDS: DEXMEDETOMIDINE 200 MCG in SODIUM CHLORIDE 0.9% 48 ML IV PRN ×2 (14:44→20:09)
[2020-10-16] MEDS: rOPINIRole 1 MG TABLET PO SCH (20:07)
[2020-10-16] MEDS ORDERED: SODIUM CHLORIDE 0.9% 500 ML IV ONE (21:40)
[2020-10-17] MEDS: VANCOMYCIN INJ 2,000 MG in SODIUM CHLORIDE 0.9% 500 ML IV SCH ×2 (00:32→12:47)
[2020-10-17] MEDS: INSULIN REGULAR 100 UNIT/ML SUBCUT SCH ×5 (00:32→18:31)
[2020-10-17] MEDS: ALBUTEROL INHALER 18 GM INH SCH ×4 (00:33→18:32)
[2020-10-17] MEDS: ACETAMINOPHEN 325 MG TABLET PO PRN (03:53)
[2020-10-17 04:29] LABS: Basophils % 0.3 % (0.0-0.8); Eosinophils # 0.4 10*3/uL (0.0-0.87); Eosinophils % 6.3 % (0.00-10.9); Hematocrit 37.2 VOL% (35.7-47.0); Hemoglobin 11.7 GM/DL (12.0-16.0); Immature Granulocytes % 0.9 %; Immature Granulocytes Absolute 0.06 #; Lymphocytes # 0.6 10*3/uL (1.4-4.0); Mean Corpuscular HGB Conc 31.5 GM/DL (32-36); Mean Corpuscular Volume 93.7 FL (87-102); Mean Platelet Volume 10.4 FL (9.6-12.0); Monocytes % 6.7 % (1.7-12.7); Neutrophils % 76.8 % (38.7-73.9); Platelet Count 373 T/CUMM (130-400); Red Blood Count 3.97 MC/CUMM (3.8-5.5); Red Cell Distribution Width 14.3 % (9.3-17.3); White Blood Count 6.9 T/CUMM (4-12)
[2020-10-17] MEDS: ENOXAPARIN 80 MG/0.8 ML SYRINGE SUBCUT SCH ×2 (04:36→15:46)
[2020-10-17 04:52] LABS: Bilirubin,Total 0.8 MG/DL (0.2-1.0); Calcium 8.1 MG/DL (8.5-10.1); Osmolality,Calculated 297.7 MOS/KG (273-304); Total Protein 6.7 G/DL (6.4-8.3)
[2020-10-17 05:25] LABS: Allen Test Positive; Pt O2 Delivery Device Ventilator
[2020-10-17 05:26] LABS: ABG Oxygen Saturation 94.5 % (95-100); ABG PH 7.524 (7.35-7.45); ABG PO2 71.6 MM HG (80-95); ABG TCO2 30.1 MMOL/L (23-27)
[2020-10-17] MEDS: DEXMEDETOMIDINE 200 MCG in SODIUM CHLORIDE 0.9% 48 ML IV PRN ×4 (06:01→20:24)
[2020-10-17] MEDS: LEVOTHYROXINE 50 MCG TABLET PO SCH (06:15)
[2020-10-17] MEDS: FUROSEMIDE 40 MG/4 ML VIAL IV SCH (09:00)
[2020-10-17] MEDS: PREGABALIN 75 MG CAPSULE PO SCH ×2 (09:20→20:39)
[2020-10-17] MEDS: FAMOTIDINE 20 MG TABLET PER TUBE SCH ×2 (09:20→20:39)
[2020-10-17] MEDS: POTASSIUM CHLORIDE 20 MEQ/15 ML UDCUP PO SCH ×2 (09:20→20:39)
[2020-10-17] MEDS: ASCORBIC ACID 500 MG TABLET PO SCH (09:20)
[2020-10-17] MEDS: OLMESARTAN 20 MG TABLET PO SCH (09:20)
[2020-10-17] MEDS: ZINC GLUCONATE 50 MG TABLET PO SCH (09:20)
[2020-10-17] MEDS: CHOLECALCIFEROL 1,000 UNIT TABLET PO SCH (09:20)
[2020-10-17] MEDS: amLODIPine 5 MG TABLET PO SCH (10:07)
[2020-10-17] MEDS: cefTRIAXone 1,000 MG in SYRINGE 1 EACH IV SCH (14:17)
[2020-10-17] MEDS: rOPINIRole 1 MG TABLET PO SCH (20:39)
[2020-10-17] MEDS: DEXMEDETOMIDINE 400 MCG in SODIUM CHLORIDE 0.9% 96 ML IV PRN (23:30)
[2020-10-18] MEDS: ACETAMINOPHEN 325 MG TABLET PO PRN ×4 (00:09→15:00)
[2020-10-18] MEDS: INSULIN REGULAR 100 UNIT/ML SUBCUT SCH ×4 (00:17→19:16)
[2020-10-18] MEDS: ALBUTEROL INHALER 18 GM INH SCH ×4 (00:18→19:37)
[2020-10-18] MEDS: VANCOMYCIN INJ 2,000 MG in SODIUM CHLORIDE 0.9% 500 ML IV SCH ×2 (00:47→12:42)
[2020-10-18] MEDS: ENOXAPARIN 80 MG/0.8 ML SYRINGE SUBCUT SCH ×2 (04:08→15:57)
[2020-10-18 05:15] LABS: Allen Test Positive; Pt O2 Delivery Device Ventilator
[2020-10-18 05:18] LABS: ABG Base Excess 2.4 MMOL/L (-2.5-2.5); ABG HCO3 25.8 MMOL/L (20-26); ABG Oxygen Saturation 94.9 % (95-100); ABG PCO2 35.5 MM HG (35-48); ABG PH 7.479 (7.35-7.45); ABG PO2 76.5 MM HG (80-95); ABG TCO2 26.9 MMOL/L (23-27)
[2020-10-18 05:20] LABS: Albumin 1.9 G/DL (3.4-5.0); Bilirubin,Total 0.9 MG/DL (0.2-1.0); Calcium 7.7 MG/DL (8.5-10.1); Osmolality,Calculated 302.6 MOS/KG (273-304); Total Protein 6.2 G/DL (6.4-8.3)
[2020-10-18] MEDS: DEXMEDETOMIDINE 400 MCG in SODIUM CHLORIDE 0.9% 96 ML IV PRN ×3 (05:22→18:10)
[2020-10-18 05:45] LABS: Basophils % 0.2 % (0.0-0.8); Eosinophils # 0.3 10*3/uL (0.0-0.87); Hematocrit 32.1 VOL% (35.7-47.0); Hemoglobin 9.9 GM/DL (12.0-16.0); Immature Granulocytes % 0.8 %; Immature Granulocytes Absolute 0.05 #; Lymphocytes # 0.7 10*3/uL (1.4-4.0); Lymphocytes % 11.4 % (21.3-54.2); Mean Corpuscular HGB Conc 30.8 GM/DL (32-36); Mean Platelet Volume 10.9 FL (9.6-12.0); Monocytes % 7.5 % (1.7-12.7); Neutrophils % 75.1 % (38.7-73.9); Platelet Count 329 T/CUMM (130-400); Red Blood Count 3.38 MC/CUMM (3.8-5.5); Red Cell Distribution Width 14.6 % (9.3-17.3)
[2020-10-18] MEDS: LEVOTHYROXINE 50 MCG TABLET PO SCH (06:26)
[2020-10-18] MEDS: FAMOTIDINE 20 MG TABLET PER TUBE SCH ×2 (08:02→20:39)
[2020-10-18] MEDS: POTASSIUM CHLORIDE 20 MEQ/15 ML UDCUP PO SCH ×2 (08:02→20:40)
[2020-10-18] MEDS: ZINC GLUCONATE 50 MG TABLET PO SCH (08:02)
[2020-10-18] MEDS: PREGABALIN 75 MG CAPSULE PO SCH ×2 (08:02→20:39)
[2020-10-18] MEDS: CHOLECALCIFEROL 1,000 UNIT TABLET PO SCH (08:02)
[2020-10-18] MEDS: ASCORBIC ACID 500 MG TABLET PO SCH (08:02)
[2020-10-18] MEDS ORDERED: OLMESARTAN 20 MG TABLET PO ONE (15:45)
[2020-10-18] MEDS: cefTRIAXone 1,000 MG in SYRINGE 1 EACH IV SCH (15:56)
[2020-10-18] MEDS: methylPREDNISolone SOD SUC 40 MG/1 ML VIAL IV SCH ×2 (15:57→23:41)
[2020-10-18] MEDS: MORPHINE 4 MG/1 ML VIAL IV PRN (18:27)
[2020-10-18] MEDS: rOPINIRole 1 MG TABLET PO SCH (20:39)
[2020-10-18] MEDS: FLUCONAZOLE INJ 100 MG in IV BAG 1 EACH IV SCH (20:40)
[2020-10-19] MEDS: INSULIN REGULAR 100 UNIT/ML SUBCUT SCH ×4 (00:47→17:47)
[2020-10-19] MEDS: VANCOMYCIN INJ 2,000 MG in SODIUM CHLORIDE 0.9% 500 ML IV SCH ×2 (00:47→11:10)
[2020-10-19] MEDS: DEXMEDETOMIDINE 400 MCG in SODIUM CHLORIDE 0.9% 96 ML IV PRN ×4 (00:48→18:12)
[2020-10-19] MEDS: ALBUTEROL INHALER 18 GM INH SCH ×4 (00:48→19:49)
[2020-10-19 03:29] LABS: ABG Base Excess 0.1 MMOL/L (-2.5-2.5); ABG HCO3 24.4 MMOL/L (20-26); ABG Oxygen Saturation 94.9 % (95-100); ABG PCO2 38.2 MM HG (35-48); ABG PH 7.414 (7.35-7.45); ABG PO2 79.4 MM HG (80-95); ABG TCO2 21.2 MMOL/L (23-27); Allen Test Positive; Pt O2 Delivery Device Ventilator
[2020-10-19] MEDS: ENOXAPARIN 80 MG/0.8 ML SYRINGE SUBCUT SCH ×2 (04:17→16:42)
[2020-10-19 04:20] LABS: Basophils % 0.1 % (0.0-0.8); Hematocrit 34.4 VOL% (35.7-47.0); Hemoglobin 11.1 GM/DL (12.0-16.0); Immature Granulocytes % 2.2 %; Immature Granulocytes Absolute 0.18 #; Lymphocytes # 0.4 10*3/uL (1.4-4.0); Lymphocytes % 4.9 % (21.3-54.2); Mean Corpuscular HGB Conc 32.3 GM/DL (32-36); Mean Corpuscular Volume 90.8 FL (87-102); Mean Platelet Volume 10.1 FL (9.6-12.0); Monocytes % 2.4 % (1.7-12.7); Neutrophils % 90.4 % (38.7-73.9); Platelet Count 322 T/CUMM (130-400); Red Blood Count 3.79 MC/CUMM (3.8-5.5); Red Cell Distribution Width 13.7 % (9.3-17.3); White Blood Count 8.4 T/CUMM (4-12)
[2020-10-19 04:44] LABS: Lymphocytes 1 % (20-55); Platelet Estimate Adequate; Segmented Neutrophils 98 % (50-85); Total Cells Counted 100
[2020-10-19 04:46] LABS: Albumin 2.1 G/DL (3.4-5.0); Bilirubin,Total 0.6 MG/DL (0.2-1.0); Calcium 8.3 MG/DL (8.5-10.1); Osmolality,Calculated 296.3 MOS/KG (273-304); Total Protein 7.2 G/DL (6.4-8.3)
[2020-10-19] MEDS: methylPREDNISolone SOD SUC 40 MG/1 ML VIAL IV SCH ×3 (06:08→22:17)
[2020-10-19] MEDS: LEVOTHYROXINE 50 MCG TABLET PO SCH (06:08)
[2020-10-19] MEDS: POTASSIUM CHLORIDE 20 MEQ/15 ML UDCUP PO SCH ×2 (08:00→20:45)
[2020-10-19] MEDS: OLMESARTAN 20 MG TABLET PO SCH (08:01)
[2020-10-19] MEDS: ZINC GLUCONATE 50 MG TABLET PO SCH (08:01)
[2020-10-19] MEDS: PREGABALIN 75 MG CAPSULE PO SCH ×2 (08:01→20:45)
[2020-10-19] MEDS: ASCORBIC ACID 500 MG TABLET PO SCH (08:01)
[2020-10-19] MEDS: CHOLECALCIFEROL 1,000 UNIT TABLET PO SCH (08:01)
[2020-10-19] MEDS: FAMOTIDINE 20 MG TABLET PER TUBE SCH ×2 (08:01→20:45)
[2020-10-19] MEDS: DESITIN 4OZ/NYSTATIN 15 GRAM MIXTURE PASTE TOP SCH ×2 (12:32→20:46)
[2020-10-19] MEDS: INSULIN GLARGINE 100 UNIT/ML SUBCUT SCH (13:47)
[2020-10-19] MEDS: fentaNYL INJ 1,250 MCG in SODIUM CHLORIDE 0.9% 225 ML IV PRN (14:38)
[2020-10-19] MEDS: rOPINIRole 1 MG TABLET PO SCH (20:45)
[2020-10-19] MEDS: cefTRIAXone 1,000 MG in SYRINGE 1 EACH IV SCH (20:45)
[2020-10-19] MEDS: FLUCONAZOLE INJ 100 MG in IV BAG 1 EACH IV SCH (20:46)
[2020-10-20] MEDS: DEXMEDETOMIDINE 400 MCG in SODIUM CHLORIDE 0.9% 96 ML IV PRN ×4 (00:25→18:53)
[2020-10-20] MEDS: ALBUTEROL INHALER 18 GM INH SCH ×4 (00:38→18:21)
[2020-10-20] MEDS: INSULIN REGULAR 100 UNIT/ML SUBCUT SCH ×4 (00:39→18:20)
[2020-10-20] MEDS: VANCOMYCIN INJ 2,000 MG in SODIUM CHLORIDE 0.9% 500 ML IV SCH ×2 (00:39→12:42)
[2020-10-20 04:02] LABS: ABG Base Excess -1.5 MMOL/L (-2.5-2.5); ABG HCO3 23.1 MMOL/L (20-26); ABG Oxygen Saturation 96.6 % (95-100); ABG PCO2 35.9 MM HG (35-48); ABG PH 7.409 (7.35-7.45); ABG TCO2 20.3 MMOL/L (23-27); Allen Test Positive; Pt O2 Delivery Device Ventilator
[2020-10-20] MEDS: ENOXAPARIN 80 MG/0.8 ML SYRINGE SUBCUT SCH ×2 (04:52→15:51)
[2020-10-20 05:23] LABS: Basophils % 0.1 % (0.0-0.8); Hematocrit 34.8 VOL% (35.7-47.0); Hemoglobin 11.1 GM/DL (12.0-16.0); Immature Granulocytes % 1.4 %; Immature Granulocytes Absolute 0.12 #; Lymphocytes # 0.4 10*3/uL (1.4-4.0); Lymphocytes % 4.8 % (21.3-54.2); Mean Corpuscular HGB Conc 31.9 GM/DL (32-36); Mean Corpuscular Volume 91.6 FL (87-102); Mean Platelet Volume 11.2 FL (9.6-12.0); Monocytes % 4.3 % (1.7-12.7); Neutrophils % 89.4 % (38.7-73.9); Platelet Count 306 T/CUMM (130-400); Red Cell Distribution Width 13.6 % (9.3-17.3); White Blood Count 8.6 T/CUMM (4-12)
[2020-10-20 05:58] LABS: Albumin 2.1 G/DL (3.4-5.0); Bilirubin,Total 0.4 MG/DL (0.2-1.0); Calcium 8.3 MG/DL (8.5-10.1); Osmolality,Calculated 297.4 MOS/KG (273-304); Total Protein 6.9 G/DL (6.4-8.3)
[2020-10-20 06:08] LABS: Hypochromasia Slight; Lymphocytes 4 % (20-55); Platelet Estimate Adequate; Segmented Neutrophils 92 % (50-85); Total Cells Counted 100
[2020-10-20] MEDS: LEVOTHYROXINE 50 MCG TABLET PO SCH (06:18)
[2020-10-20] MEDS: methylPREDNISolone SOD SUC 40 MG/1 ML VIAL IV SCH ×3 (06:18→22:22)
[2020-10-20] MEDS: OLMESARTAN 20 MG TABLET PO SCH (09:14)
[2020-10-20] MEDS: ZINC GLUCONATE 50 MG TABLET PO SCH (09:14)
[2020-10-20] MEDS: CHOLECALCIFEROL 1,000 UNIT TABLET PO SCH (09:14)
[2020-10-20] MEDS: PREGABALIN 75 MG CAPSULE PO SCH ×2 (09:14→20:37)
[2020-10-20] MEDS: INSULIN GLARGINE 100 UNIT/ML SUBCUT SCH (09:15)
[2020-10-20] MEDS: ASCORBIC ACID 500 MG TABLET PO SCH (09:15)
[2020-10-20] MEDS: FAMOTIDINE 20 MG TABLET PER TUBE SCH ×2 (09:15→20:37)
[2020-10-20] MEDS: DESITIN 4OZ/NYSTATIN 15 GRAM MIXTURE PASTE TOP SCH ×2 (09:16→21:50)
[2020-10-20] MEDS: POTASSIUM CHLORIDE 20 MEQ/15 ML UDCUP PO SCH ×2 (09:16→20:38)
[2020-10-20] MEDS ORDERED: INSULIN GLARGINE 100 UNIT/ML SUBCUT ONE (10:30)
[2020-10-20] MEDS: fentaNYL INJ 1,250 MCG in SODIUM CHLORIDE 0.9% 225 ML IV PRN (20:33)
[2020-10-20] MEDS: FLUCONAZOLE INJ 100 MG in IV BAG 1 EACH IV SCH (20:35)
[2020-10-20] MEDS: rOPINIRole 1 MG TABLET PO SCH (20:37)
[2020-10-20] MEDS: cefTRIAXone 1,000 MG in SYRINGE 1 EACH IV SCH (20:39)
[2020-10-21] MEDS: DEXMEDETOMIDINE 400 MCG in SODIUM CHLORIDE 0.9% 96 ML IV PRN ×2 (00:29→07:18)
[2020-10-21] MEDS: INSULIN REGULAR 100 UNIT/ML SUBCUT SCH ×4 (01:00→18:12)
[2020-10-21] MEDS: VANCOMYCIN INJ 2,000 MG in SODIUM CHLORIDE 0.9% 500 ML IV SCH ×2 (01:00→12:12)
[2020-10-21] MEDS: ALBUTEROL INHALER 18 GM INH SCH ×4 (01:01→18:12)
[2020-10-21 04:56] LABS: ABG Base Excess -0.9 MMOL/L (-2.5-2.5); ABG HCO3 23.1 MMOL/L (20-26); ABG Oxygen Saturation 97.1 % (95-100); ABG PCO2 36.3 MM HG (35-48); ABG PH 7.422 (7.35-7.45); ABG PO2 92.7 MM HG (80-95); ABG TCO2 24.2 MMOL/L (23-27); Allen Test Positive; Pt O2 Delivery Device Ventilator
[2020-10-21] MEDS: ENOXAPARIN 80 MG/0.8 ML SYRINGE SUBCUT SCH ×2 (05:00→16:23)
[2020-10-21 05:48] LABS: Basophils % 0.1 % (0.0-0.8); Hematocrit 34.3 VOL% (35.7-47.0); Immature Granulocytes Absolute 0.09 #; Lymphocytes # 0.6 10*3/uL (1.4-4.0); Lymphocytes % 6.5 % (21.3-54.2); Mean Corpuscular HGB Conc 32.1 GM/DL (32-36); Mean Corpuscular Volume 91.7 FL (87-102); Monocytes % 9.1 % (1.7-12.7); Neutrophils % 83.3 % (38.7-73.9); Platelet Count 279 T/CUMM (130-400); Red Blood Count 3.74 MC/CUMM (3.8-5.5); Red Cell Distribution Width 13.7 % (9.3-17.3); White Blood Count 8.7 T/CUMM (4-12)
[2020-10-21 06:12] LABS: Calcium 8.3 MG/DL (8.5-10.1); Osmolality,Calculated 294.5 MOS/KG (273-304)
[2020-10-21] MEDS: methylPREDNISolone SOD SUC 40 MG/1 ML VIAL IV SCH ×3 (06:34→16:22)
[2020-10-21] MEDS: LEVOTHYROXINE 50 MCG TABLET PO SCH (06:34)
[2020-10-21] MEDS: ASCORBIC ACID 500 MG TABLET PO SCH (08:52)
[2020-10-21] MEDS: OLMESARTAN 20 MG TABLET PO SCH (08:52)
[2020-10-21] MEDS: FAMOTIDINE 20 MG TABLET PER TUBE SCH ×2 (08:52→21:45)
[2020-10-21] MEDS: ZINC GLUCONATE 50 MG TABLET PO SCH (08:52)
[2020-10-21] MEDS: CHOLECALCIFEROL 1,000 UNIT TABLET PO SCH (08:52)
[2020-10-21] MEDS: PREGABALIN 75 MG CAPSULE PO SCH ×2 (08:52→21:45)
[2020-10-21] MEDS: fentaNYL 25 MCG/HR PATCH TRANSDERM SCH (08:53)
[2020-10-21] MEDS: POTASSIUM CHLORIDE 20 MEQ/15 ML UDCUP PO SCH (08:55)
[2020-10-21] MEDS: INSULIN GLARGINE 100 UNIT/ML SUBCUT SCH (08:55)
[2020-10-21] MEDS: DESITIN 4OZ/NYSTATIN 15 GRAM MIXTURE PASTE TOP SCH ×2 (08:56→21:46)
[2020-10-21] MEDS ORDERED: FUROSEMIDE 40 MG/4 ML VIAL IV ONE (09:00)
[2020-10-21] MEDS: FLUCONAZOLE INJ 100 MG in IV BAG 1 EACH IV SCH (21:45)
[2020-10-21] MEDS: MORPHINE 4 MG/1 ML VIAL IV PRN (21:46)
[2020-10-21] MEDS: rOPINIRole 1 MG TABLET PO SCH (21:46)
[2020-10-22] MEDS: INSULIN REGULAR 100 UNIT/ML SUBCUT SCH ×4 (01:00→17:57)
[2020-10-22] MEDS: VANCOMYCIN INJ 2,000 MG in SODIUM CHLORIDE 0.9% 500 ML IV SCH ×3 (01:33→20:48)
[2020-10-22] MEDS: ALBUTEROL INHALER 18 GM INH SCH ×4 (01:34→19:06)
[2020-10-22 04:58] LABS: Allen Test Positive; Pt O2 Delivery Device Venturi Mask
[2020-10-22 05:02] LABS: ABG Base Excess 5.4 MMOL/L (-2.5-2.5); ABG HCO3 29.2 MMOL/L (20-26); ABG Oxygen Saturation 95.5 % (95-100); ABG PCO2 44.4 MM HG (35-48); ABG PH 7.443 (7.35-7.45); ABG PO2 77.9 MM HG (80-95)
[2020-10-22 05:16] LABS: Basophils % 0.1 % (0.0-0.8); Hematocrit 37.3 VOL% (35.7-47.0); Hemoglobin 12.3 GM/DL (12.0-16.0); Immature Granulocytes % 1.2 %; Immature Granulocytes Absolute 0.12 #; Lymphocytes # 0.7 10*3/uL (1.4-4.0); Lymphocytes % 6.7 % (21.3-54.2); Mean Corpuscular Volume 89.2 FL (87-102); Mean Platelet Volume 10.6 FL (9.6-12.0); Monocytes % 10.4 % (1.7-12.7); Neutrophils % 81.6 % (38.7-73.9); Platelet Count 324 T/CUMM (130-400); Red Blood Count 4.18 MC/CUMM (3.8-5.5); Red Cell Distribution Width 13.9 % (9.3-17.3); White Blood Count 9.9 T/CUMM (4-12)
[2020-10-22] MEDS: ENOXAPARIN 80 MG/0.8 ML SYRINGE SUBCUT SCH ×2 (05:38→16:38)
[2020-10-22 05:40] LABS: Calcium 8.9 MG/DL (8.5-10.1); Osmolality,Calculated 288.4 MOS/KG (273-304)
[2020-10-22] MEDS: methylPREDNISolone SOD SUC 40 MG/1 ML VIAL IV SCH ×3 (06:47→20:49)
[2020-10-22] MEDS: LEVOTHYROXINE 50 MCG TABLET PO SCH (06:48)
[2020-10-22] MEDS: CHOLECALCIFEROL 1,000 UNIT TABLET PO SCH (08:07)
[2020-10-22] MEDS: OLMESARTAN 20 MG TABLET PO SCH (08:07)
[2020-10-22] MEDS: ASCORBIC ACID 500 MG TABLET PO SCH (08:07)
[2020-10-22] MEDS: FAMOTIDINE 20 MG TABLET PER TUBE SCH ×2 (08:08→20:48)
[2020-10-22] MEDS: ZINC GLUCONATE 50 MG TABLET PO SCH (08:08)
[2020-10-22] MEDS: PREGABALIN 75 MG CAPSULE PO SCH ×2 (08:08→20:48)
[2020-10-22] MEDS: DESITIN 4OZ/NYSTATIN 15 GRAM MIXTURE PASTE TOP SCH ×2 (08:08→20:49)
[2020-10-22] MEDS: INSULIN GLARGINE 100 UNIT/ML SUBCUT SCH ×2 (09:47→10:11)
[2020-10-22] MEDS: rOPINIRole 1 MG TABLET PO SCH (20:48)
[2020-10-22] MEDS: POTASSIUM CHLORIDE 20 MEQ/15 ML UDCUP PO SCH (20:48)
[2020-10-22] MEDS: FLUCONAZOLE INJ 100 MG in IV BAG 1 EACH IV SCH (23:18)
[2020-10-23] MEDS: ALBUTEROL INHALER 18 GM INH SCH ×4 (00:58→18:18)
[2020-10-23] MEDS: INSULIN REGULAR 100 UNIT/ML SUBCUT SCH ×4 (02:00→18:18)
[2020-10-23 03:46] LABS: ABG Base Excess 4.9 MMOL/L (-2.5-2.5); ABG HCO3 28.8 MMOL/L (20-26); ABG Oxygen Saturation 96.1 % (95-100); ABG PCO2 42.2 MM HG (35-48); ABG PH 7.451 (7.35-7.45); ABG PO2 80.8 MM HG (80-95); ABG TCO2 25.7 MMOL/L (23-27)
[2020-10-23 05:54] LABS: Basophils % 0.1 % (0.0-0.8); Eosinophils % 0.1 % (0.00-10.9); Hematocrit 40.5 VOL% (35.7-47.0); Immature Granulocytes % 1.3 %; Immature Granulocytes Absolute 0.12 #; Lymphocytes # 0.4 10*3/uL (1.4-4.0); Lymphocytes % 3.9 % (21.3-54.2); Mean Corpuscular HGB Conc 32.1 GM/DL (32-36); Mean Platelet Volume 10.4 FL (9.6-12.0); Monocytes % 3.9 % (1.7-12.7); Neutrophils % 90.7 % (38.7-73.9); Platelet Count 318 T/CUMM (130-400); Red Cell Distribution Width 14.7 % (9.3-17.3); White Blood Count 9.5 T/CUMM (4-12)
[2020-10-23 06:08] LABS: Calcium 8.4 MG/DL (8.5-10.1)
[2020-10-23 06:27] LABS: Hypochromasia 1+; Lymphocytes 4 % (20-55); Microcytosis 1+; Platelet Estimate Adequate; Segmented Neutrophils 92 % (50-85); Total Cells Counted 100
[2020-10-23] MEDS: LEVOTHYROXINE 50 MCG TABLET PO SCH (06:34)
[2020-10-23] MEDS: ENOXAPARIN 80 MG/0.8 ML SYRINGE SUBCUT SCH ×2 (06:34→18:18)
[2020-10-23] MEDS: methylPREDNISolone SOD SUC 40 MG/1 ML VIAL IV SCH ×2 (08:40→20:31)
[2020-10-23] MEDS: POTASSIUM CHLORIDE 20 MEQ/15 ML UDCUP PO SCH ×2 (08:40→20:31)
[2020-10-23] MEDS: INSULIN GLARGINE 100 UNIT/ML SUBCUT SCH (08:40)
[2020-10-23] MEDS: CHOLECALCIFEROL 1,000 UNIT TABLET PO SCH (08:41)
[2020-10-23] MEDS: amLODIPine 5 MG TABLET PO SCH (08:41)
[2020-10-23] MEDS: OLMESARTAN 20 MG TABLET PO SCH (08:41)
[2020-10-23] MEDS: FAMOTIDINE 20 MG TABLET PER TUBE SCH ×2 (08:41→20:31)
[2020-10-23] MEDS: ASCORBIC ACID 500 MG TABLET PO SCH (08:41)
[2020-10-23] MEDS: ZINC GLUCONATE 50 MG TABLET PO SCH (08:41)
[2020-10-23] MEDS: PREGABALIN 75 MG CAPSULE PO SCH ×2 (08:41→20:31)
[2020-10-23] MEDS: DESITIN 4OZ/NYSTATIN 15 GRAM MIXTURE PASTE TOP SCH ×2 (08:42→20:31)
[2020-10-23] MEDS: VANCOMYCIN INJ 2,000 MG in SODIUM CHLORIDE 0.9% 500 ML IV SCH (11:39)
[2020-10-23] MEDS: rOPINIRole 1 MG TABLET PO SCH (20:31)
[2020-10-24] MEDS: ALBUTEROL INHALER 18 GM INH SCH ×4 (00:55→20:20)
[2020-10-24] MEDS: INSULIN REGULAR 100 UNIT/ML SUBCUT SCH ×4 (00:55→17:15)
[2020-10-24] MEDS: VANCOMYCIN INJ 2,000 MG in SODIUM CHLORIDE 0.9% 500 ML IV SCH (05:35)
[2020-10-24] MEDS: ENOXAPARIN 80 MG/0.8 ML SYRINGE SUBCUT SCH ×2 (05:35→17:15)
[2020-10-24] MEDS: LEVOTHYROXINE 50 MCG TABLET PO SCH (06:08)
[2020-10-24] MEDS: INSULIN GLARGINE 100 UNIT/ML SUBCUT SCH (08:26)
[2020-10-24] MEDS: POTASSIUM CHLORIDE 20 MEQ/15 ML UDCUP PO SCH ×2 (08:27→21:48)
[2020-10-24] MEDS: OLMESARTAN 20 MG TABLET PO SCH (08:27)
[2020-10-24] MEDS: FAMOTIDINE 20 MG TABLET PER TUBE SCH ×2 (08:27→21:48)
[2020-10-24] MEDS: PREGABALIN 75 MG CAPSULE PO SCH ×2 (08:27→21:48)
[2020-10-24] MEDS: ZINC GLUCONATE 50 MG TABLET PO SCH (08:27)
[2020-10-24] MEDS: ASCORBIC ACID 500 MG TABLET PO SCH (08:27)
[2020-10-24] MEDS: CHOLECALCIFEROL 1,000 UNIT TABLET PO SCH (08:27)
[2020-10-24] MEDS: fentaNYL 25 MCG/HR PATCH TRANSDERM SCH (08:28)
[2020-10-24] MEDS: amLODIPine 5 MG TABLET PO SCH (08:28)
[2020-10-24] MEDS: methylPREDNISolone SOD SUC 40 MG/1 ML VIAL IV SCH ×2 (08:30→21:50)
[2020-10-24] MEDS: DESITIN 4OZ/NYSTATIN 15 GRAM MIXTURE PASTE TOP SCH ×2 (11:02→21:48)
[2020-10-24] MEDS: rOPINIRole 1 MG TABLET PO SCH (21:48)
[2020-10-25] MEDS: ALBUTEROL INHALER 18 GM INH SCH ×4 (00:54→18:23)
[2020-10-25] MEDS: VANCOMYCIN INJ 2,000 MG in SODIUM CHLORIDE 0.9% 500 ML IV SCH (00:54)
[2020-10-25] MEDS: INSULIN REGULAR 100 UNIT/ML SUBCUT SCH ×4 (01:03→18:08)
[2020-10-25] MEDS: ENOXAPARIN 80 MG/0.8 ML SYRINGE SUBCUT SCH ×2 (06:26→18:09)
[2020-10-25] MEDS: LEVOTHYROXINE 50 MCG TABLET PO SCH (06:26)
[2020-10-25] MEDS: POTASSIUM CHLORIDE 20 MEQ/15 ML UDCUP PO SCH ×2 (10:06→20:54)
[2020-10-25] MEDS: methylPREDNISolone SOD SUC 40 MG/1 ML VIAL IV SCH (10:07)
[2020-10-25] MEDS: amLODIPine 5 MG TABLET PO SCH (10:07)
[2020-10-25] MEDS: ZINC GLUCONATE 50 MG TABLET PO SCH (10:07)
[2020-10-25] MEDS: CHOLECALCIFEROL 1,000 UNIT TABLET PO SCH (10:08)
[2020-10-25] MEDS: OLMESARTAN 20 MG TABLET PO SCH (10:08)
[2020-10-25] MEDS: FAMOTIDINE 20 MG TABLET PER TUBE SCH ×2 (10:08→20:50)
[2020-10-25] MEDS: PREGABALIN 75 MG CAPSULE PO SCH ×2 (10:08→20:50)
[2020-10-25] MEDS: INSULIN GLARGINE 100 UNIT/ML SUBCUT SCH (10:08)
[2020-10-25] MEDS: ASCORBIC ACID 500 MG TABLET PO SCH (10:09)
[2020-10-25] MEDS: DESITIN 4OZ/NYSTATIN 15 GRAM MIXTURE PASTE TOP SCH ×2 (10:09→20:55)
[2020-10-25] MEDS: VANCOMYCIN INJ 1,750 MG in SODIUM CHLORIDE 0.9% 500 ML IV SCH (12:42)
[2020-10-25] MEDS: rOPINIRole 1 MG TABLET PO SCH (20:50)
[2020-10-25] MEDS: MORPHINE 4 MG/1 ML VIAL IV PRN (23:02)
[2020-10-26] MEDS: ALBUTEROL INHALER 18 GM INH SCH ×2 (01:19→14:05)
[2020-10-26] MEDS: INSULIN REGULAR 100 UNIT/ML SUBCUT SCH ×4 (01:19→19:27)
[2020-10-26] MEDS: VANCOMYCIN INJ 1,750 MG in SODIUM CHLORIDE 0.9% 500 ML IV SCH (01:40)
[2020-10-26 05:50] LABS: Basophils % 0.1 % (0.0-0.8); Eosinophils # 0.1 10*3/uL (0.0-0.87); Eosinophils % 0.9 % (0.00-10.9); Hematocrit 37.2 VOL% (35.7-47.0); Hemoglobin 11.4 GM/DL (12.0-16.0); Immature Granulocytes % 0.6 %; Immature Granulocytes Absolute 0.05 #; Mean Corpuscular HGB Conc 30.6 GM/DL (32-36); Mean Corpuscular Volume 94.9 FL (87-102); Mean Platelet Volume 10.4 FL (9.6-12.0); Monocytes % 8.4 % (1.7-12.7); Platelet Count 244 T/CUMM (130-400); Red Blood Count 3.92 MC/CUMM (3.8-5.5); Red Cell Distribution Width 14.6 % (9.3-17.3); White Blood Count 7.7 T/CUMM (4-12)
[2020-10-26] MEDS: ENOXAPARIN 80 MG/0.8 ML SYRINGE SUBCUT SCH (05:56)
[2020-10-26 06:08] LABS: Calcium 8.5 MG/DL (8.5-10.1); Osmolality,Calculated 293.6 MOS/KG (273-304)
[2020-10-26] MEDS: MORPHINE 4 MG/1 ML VIAL IV PRN ×3 (06:30→14:44)
[2020-10-26] MEDS ORDERED: TUBERCULIN SKIN TEST 0.1 ML SYRINGE INTRADERM ONE (08:41)
[2020-10-26] MEDS: ZINC GLUCONATE 50 MG TABLET PO SCH (09:18)
[2020-10-26] MEDS: OLMESARTAN 20 MG TABLET PO SCH (09:18)
[2020-10-26] MEDS: ASCORBIC ACID 500 MG TABLET PO SCH (09:19)
[2020-10-26] MEDS: PREGABALIN 75 MG CAPSULE PO SCH ×2 (09:19→21:15)
[2020-10-26] MEDS: POTASSIUM CHLORIDE 20 MEQ/15 ML UDCUP PO SCH ×2 (09:19→21:15)
[2020-10-26] MEDS: amLODIPine 5 MG TABLET PO SCH (09:19)
[2020-10-26] MEDS: CHOLECALCIFEROL 1,000 UNIT TABLET PO SCH (09:19)
[2020-10-26] MEDS: methylPREDNISolone SOD SUC 40 MG/1 ML VIAL IV SCH (09:19)
[2020-10-26] MEDS: LEVOTHYROXINE 50 MCG TABLET PO SCH (09:19)
[2020-10-26] MEDS: INSULIN GLARGINE 100 UNIT/ML SUBCUT SCH (09:21)
[2020-10-26] MEDS: DESITIN 4OZ/NYSTATIN 15 GRAM MIXTURE PASTE TOP SCH ×2 (09:35→21:15)
[2020-10-26] MEDS: FAMOTIDINE 20 MG TABLET PER TUBE SCH ×2 (10:32→21:15)
[2020-10-26] MEDS: ALBUTEROL 2.5 MG/3 ML NEB RESP TX SCH ×2 (13:19→19:28)
[2020-10-26] MEDS: DULoxetine 30 MG CAPSULE PO SCH (14:19)
[2020-10-26] MEDS: rOPINIRole 1 MG TABLET PO SCH (21:15)
[2020-10-27] MEDS: ALBUTEROL 2.5 MG/3 ML NEB RESP TX SCH ×4 (00:06→19:49)
[2020-10-27] MEDS: INSULIN REGULAR 100 UNIT/ML SUBCUT SCH ×5 (00:33→23:55)
[2020-10-27 05:37] LABS: Basophils % 0.1 % (0.0-0.8); Eosinophils # 0.1 10*3/uL (0.0-0.87); Eosinophils % 1.5 % (0.00-10.9); Hematocrit 36.5 VOL% (35.7-47.0); Hemoglobin 11.3 GM/DL (12.0-16.0); Immature Granulocytes % 0.5 %; Immature Granulocytes Absolute 0.04 #; Lymphocytes % 12.6 % (21.3-54.2); Mean Corpuscular Volume 94.3 FL (87-102); Mean Platelet Volume 10.4 FL (9.6-12.0); Monocytes % 7.5 % (1.7-12.7); Neutrophils % 77.8 % (38.7-73.9); Platelet Count 223 T/CUMM (130-400); Red Blood Count 3.87 MC/CUMM (3.8-5.5); Red Cell Distribution Width 14.7 % (9.3-17.3); White Blood Count 7.8 T/CUMM (4-12)
[2020-10-27 05:57] LABS: Calcium 8.4 MG/DL (8.5-10.1); Osmolality,Calculated 291.7 MOS/KG (273-304)
[2020-10-27] MEDS: OLMESARTAN 20 MG TABLET PO SCH (08:31)
[2020-10-27] MEDS: ASCORBIC ACID 500 MG TABLET PO SCH (08:31)
[2020-10-27] MEDS: LEVOTHYROXINE 50 MCG TABLET PO SCH (08:31)
[2020-10-27] MEDS: FAMOTIDINE 20 MG TABLET PER TUBE SCH ×2 (08:31→21:35)
[2020-10-27] MEDS: DULoxetine 30 MG CAPSULE PO SCH (08:31)
[2020-10-27] MEDS: CHOLECALCIFEROL 1,000 UNIT TABLET PO SCH (08:32)
[2020-10-27] MEDS: PREGABALIN 75 MG CAPSULE PO SCH ×2 (08:32→21:35)
[2020-10-27] MEDS: amLODIPine 5 MG TABLET PO SCH (08:32)
[2020-10-27] MEDS: ZINC GLUCONATE 50 MG TABLET PO SCH (08:32)
[2020-10-27] MEDS: POTASSIUM CHLORIDE 20 MEQ/15 ML UDCUP PO SCH ×3 (08:32→21:35)
[2020-10-27] MEDS: ENOXAPARIN 40 MG/0.4 ML SYRINGE SUBCUT SCH (08:33)
[2020-10-27] MEDS: methylPREDNISolone SOD SUC 40 MG/1 ML VIAL IV SCH (08:33)
[2020-10-27] MEDS: INSULIN GLARGINE 100 UNIT/ML SUBCUT SCH (08:34)
[2020-10-27] MEDS: fentaNYL 25 MCG/HR PATCH TRANSDERM SCH (08:34)
[2020-10-27] MEDS: DESITIN 4OZ/NYSTATIN 15 GRAM MIXTURE PASTE TOP SCH ×2 (08:35→21:36)
[2020-10-27] MEDS ORDERED: MORPHINE 4 MG/1 ML VIAL IV PRN (09:04)
[2020-10-27] MEDS: rOPINIRole 1 MG TABLET PO SCH (21:35)
[2020-10-28] MEDS: ALBUTEROL 2.5 MG/3 ML NEB RESP TX SCH ×2 (01:57→08:00)
[2020-10-28] MEDS: INSULIN REGULAR 100 UNIT/ML SUBCUT SCH (05:41)
[2020-10-28 08:19] VITALS: BP 141/62
[2020-10-28] MEDS ORDERED: predniSONE 10 MG TABLET PO SCH (09:00)
[2020-10-28] MEDS: OLMESARTAN 20 MG TABLET PO SCH (09:19)
[2020-10-28] MEDS: FAMOTIDINE 20 MG TABLET PER TUBE SCH (09:19)
[2020-10-28] MEDS: DULoxetine 30 MG CAPSULE PO SCH (09:19)
[2020-10-28] MEDS: ASCORBIC ACID 500 MG TABLET PO SCH (09:19)
[2020-10-28] MEDS: PREGABALIN 75 MG CAPSULE PO SCH (09:19)
[2020-10-28] MEDS: amLODIPine 5 MG TABLET PO SCH (09:20)
[2020-10-28] MEDS: ZINC GLUCONATE 50 MG TABLET PO SCH (09:20)
[2020-10-28] MEDS: LEVOTHYROXINE 50 MCG TABLET PO SCH (09:20)
[2020-10-28] MEDS: CHOLECALCIFEROL 1,000 UNIT TABLET PO SCH (09:20)
[2020-10-28] MEDS: DESITIN 4OZ/NYSTATIN 15 GRAM MIXTURE PASTE TOP SCH (09:21)
[2020-10-28] MEDS: ENOXAPARIN 40 MG/0.4 ML SYRINGE SUBCUT SCH (09:21)
[2020-10-28] MEDS: POTASSIUM CHLORIDE 20 MEQ/15 ML UDCUP PO SCH (09:22)
== END 2020-10-28 12:43 | DRG 207 ==
LOC: EDUNIT# → EDBD → N.ED 15:22 → N.EDINP 18:59 → SUATTDRO 18:59 → N.2E 20:29 → N.CC 23:45 → N.2E 10-22 16:50 → N.5E 10-25 15:07
PROVIDERS: ADMIT Family Medicine; ATTEND Internal Medicine